=== PATIENT | female | born 1990 | race Caucasian/White ===

== ENCOUNTER 2017-02-23 11:42 | Emergency (ER) | payer SELFPAY ==
[~2017-02-23] VITALS: Ht 170.2 cm; Wt 102.8 kg
[~2017-02-23 11:42] MED LIST: AMOXICILLIN500 MG OR; AMOXICILLIN500 MG PO; AMOXIL400 MG/5 M OR; ATIVAN0.5 MG PO; AUGMENTIN875TAB PO; BLEPH-1010 % OU; CIPRO500 MG PO; CIPROFLOXACN500 MG PO; CORTISPORIN OP7.5 ML OP; FLAGYL500 MG PO; FLOVENT HFA44 MCG IN; LORTAB 10-325 M1 TAB PO; MACROBID100 MG OR; MIRENA IU; NAPROSYN500 MG PO; NO HOME MEDS; PATANOL0.1 % OP; PHENERGAN SUPP RE; PRENATA4 OR; PRILOSEC20 MG PO; PROAIR HFA IN; PROMETHAZINE25 M1 RE; SUMATRIPTAN25 MG PO; TOPAMAX50 M1 PO; TYLENOL500 MG OR; ULTRAM50 M1 OR; ULTRAM50 M1 PO; ULTRAM50 MG OR; WELLBUTRIN SR150 MG PO; ZITHROMAX250 MG PO; ZOFRAN ODT4 MG PO; ZPAK PO; [UNRECOGNIZED DRUG - OTHER]
[2017-02-23] MEDS ORDERED: BC HEADACH1 PO (11:52)
[2017-02-23] MEDS ORDERED: BL IBUPROFEN200 MG PO (11:52)
[2017-02-23 12:46] LABS: URINE BILIRUBIN - DIPSTICK NEGATIVE (NEGATIVE); URINE BLOOD DIPSTICK NEGATIVE (NEGATIVE); URINE CLARITY CLEAR; URINE COLOR YELLOW; URINE GLUCOSE - DIPSTICK NEGATIVE (NEGATIVE); URINE KETONE NEGATIVE (NEGATIVE); URINE LEUK ESTERASE NEGATIVE (NEGATIVE); URINE NITRITE - DIPSTICK NEGATIVE (Negative); URINE PH 6.5 (4.5-8.0); URINE PROTEIN - DIPSTICK NEGATIVE (NEG-TRACE); URINE UROBILINOGEN - DIPSTICK 0.2 E.U./dL (0.2)
[2017-02-23 12:50] LABS: HEMATOCRIT 41.6 % (37.0-47.0); HEMOGLOBIN 14.2 g/dl (12.0-16.0); IMMATURE GRANULOCYTES 0.5 % (0.0-1.0); MEAN CELL VOLUME 96.3 fL CALC (80.0-100.0); MEAN CORPUSCULAR HGB 32.9 pG CALC (26.0-32.0); MEAN CORPUSCULAR HGB CONC 34.1 g/L CALC (32.0-36.0); NEUT# 5.6 thou/uL (2.00-7.15); RED BLOOD COUNT 4.32 mill/uL (4.20-5.60); RED CELL DISTRI WIDTH 11.9 % (11.5-15.5)
[2017-02-23 13:45] LABS: ALBUMIN 4.4 g/dL (3.2-5.0); ALKALINE PHOSPHATASE 72 u/l (38-126); ANION GAP 17 (6-22 (CALC)); BILIRUBIN, TOTAL 0.4 mg/dL (0.0-1.4); BUN 11 mg/dL (7-17); BUN/CREATININE RATIO 18 (12-20 (CALC)); CALCIUM 9.1 mg/dL (8.4-10.2); CARBON DIOXIDE 22 mmol/l (22-30); CHLORIDE 106 mmol/l (95-108); CREATININE 0.6 mg/dL (0.5-1.0); GFR > 60 ML/MIN (>=60 (CALC)); GFR FOR AFR.AMER. > 60 ML/MIN (>=60 (CALC)); GLUCOSE 87 mg/dL (65-105); POTASSIUM 3.9 mmol/l (3.5-5.1); SGOT/AST 27 u/l (14-36); SGPT/ALT 34 u/l (9-52); SODIUM 141 mmol/l (137-146)
[2017-02-23] MEDS ORDERED: FIORICET PO (14:35)
[2017-02-23 14:55] VITALS: BP 126/75
== END 2017-02-23 14:51 | disposition home or self-care (01) | DRG 103 ==
LOC: ED 11:42
PROVIDERS: Emergency Medicine
DX: R51 Headache (principal); H53.8 Other visual disturbances; M54.2 Cervicalgia; R11.0 Nausea

== ENCOUNTER 2017-02-24 04:09 | Emergency (ER) | payer SELFPAY ==
[~2017-02-24] VITALS: Ht 170.2 cm; Wt 102.2 kg
[~2017-02-24 04:09] MED LIST changes: +BC HEADACH1 PO; +BL IBUPROFEN200 MG PO; +FIORICET PO
[2017-02-24 06:01] LABS: HEMOGLOBIN 14.8 g/dl (12.0-16.0); IMMATURE GRANULOCYTES 0.3 % (0.0-1.0); MEAN CELL VOLUME 97.3 fL CALC (80.0-100.0); MEAN CORPUSCULAR HGB 33.5 pG CALC (26.0-32.0); MEAN CORPUSCULAR HGB CONC 34.4 g/L CALC (32.0-36.0); NEUT# 6.84 thou/uL (2.00-7.15); RED BLOOD COUNT 4.42 mill/uL (4.20-5.60)
[2017-02-24 06:05] LABS: ALBUMIN 4.6 g/dL (3.2-5.0); ALKALINE PHOSPHATASE 67 u/l (38-126); ANION GAP 18 (6-22 (CALC)); BILIRUBIN, TOTAL 0.5 mg/dL (0.0-1.4); BUN 10 mg/dL (7-17); BUN/CREATININE RATIO 14 (12-20 (CALC)); CALCIUM 9.8 mg/dL (8.4-10.2); CARBON DIOXIDE 23 mmol/l (22-30); CHLORIDE 106 mmol/l (95-108); CREATININE 0.7 mg/dL (0.5-1.0); GFR > 60 ML/MIN (>=60 (CALC)); GFR FOR AFR.AMER. > 60 ML/MIN (>=60 (CALC)); GLUCOSE 87 mg/dL (65-105); POTASSIUM 4.2 mmol/l (3.5-5.1); SGOT/AST 20 u/l (14-36); SGPT/ALT 35 u/l (9-52); SODIUM 144 mmol/l (137-146); TOTAL PROTEIN 7.8 g/dL (6.3-8.2)
[2017-02-24 07:12] LABS: URINE BILIRUBIN - DIPSTICK NEGATIVE (NEGATIVE); URINE BLOOD DIPSTICK NEGATIVE (NEGATIVE); URINE CLARITY CLEAR; URINE COLOR YELLOW; URINE GLUCOSE - DIPSTICK NEGATIVE (NEGATIVE); URINE KETONE NEGATIVE (NEGATIVE); URINE LEUK ESTERASE NEGATIVE (NEGATIVE); URINE NITRITE - DIPSTICK NEGATIVE (Negative); URINE PROTEIN - DIPSTICK NEGATIVE (NEG-TRACE); URINE UROBILINOGEN - DIPSTICK 0.2 E.U./dL (0.2)
[2017-02-24 10:18] VITALS: BP 121/79
== END 2017-02-24 10:18 | disposition short-term general hospital (02) | DRG 103 ==
LOC: ED 04:09
PROVIDERS: Emergency Medicine
PROC: 009U3ZX Drainage of Spinal Canal, Percutaneous Approach, Diagnostic (ICD-10-PCS; principal; 2017-02-24)
DX: R51 Headache (principal)

== ENCOUNTER 2017-03-12 22:44 | Emergency (ER) | payer SELFPAY ==
[~2017-03-12] VITALS: Ht 170.2 cm; Wt 103.2 kg
[2017-03-13] MEDS ORDERED: ULTRAM50 M1 PO (01:50)
[2017-03-13 02:24] VITALS: BP 142/94
[2017-03-14] MEDS ORDERED: AMLODIPINE BESY10 MG PO (18:01)
== END 2017-03-13 02:21 | disposition home or self-care (01) | DRG 103 ==
LOC: ED 22:44
DX: R51 Headache (principal); I10 Essential (primary) hypertension; F32.9 Major depressive disorder, single episode, unspecified

== ENCOUNTER 2017-03-14 14:38 | Emergency (ER) | payer SELFPAY ==
[~2017-03-14] VITALS: Ht 170.2 cm; Wt 100.0 kg
[2017-03-14] MEDS ORDERED: AMLODIPINE BESY10 MG PO (18:01)
[2017-03-14 18:10] VITALS: BP 146/84
== END 2017-03-14 18:10 | disposition home or self-care (01) | DRG 103 ==
LOC: ED 14:38
DX: G44.009 Cluster headache syndrome, unspecified, not intractable (principal); I10 Essential (primary) hypertension; F32.9 Major depressive disorder, single episode, unspecified

== ENCOUNTER 2017-07-13 20:48 | Emergency (ER) | payer SELFPAY ==
[~2017-07-13] VITALS: Ht 170.2 cm; Wt 103.8 kg
[~2017-07-13 20:48] MED LIST changes: +AMLODIPINE BESY10 MG PO
[2017-07-13] MEDS ORDERED: ULTRAM50 M1 PO (21:27)
[2017-07-13] MEDS ORDERED: KEFLEX500 M1 PO (21:27)
[2017-07-13 21:50] VITALS: BP 139/81
== END 2017-07-13 21:50 | disposition home or self-care (01) | DRG 607 ==
LOC: ED 20:48
DX: S70.362A Insect bite (nonvenomous), left thigh, initial encounter (principal); L08.9 Local infection of the skin and subcutaneous tissue, unspecified; W57.XXXA Bitten or stung by nonvenomous insect and other nonvenomous arthropods, initial encounter

== ENCOUNTER 2017-09-15 23:37 | Emergency (ER) | payer SELFPAY ==
[~2017-09-15] VITALS: Ht 170.2 cm; Wt 107.0 kg
[~2017-09-15 23:37] MED LIST changes: +KEFLEX500 M1 PO
[2017-09-16 00:23] LABS: INFLUENZA A NONE DETECTED (NONE DETECT); INFLUENZA B NONE DETECTED (NONE DETECT)
[2017-09-16] MEDS ORDERED: AMOXICILLIN500 MG PO (00:40)
[2017-09-16] MEDS ORDERED: NAPROSYN500 MG PO (00:40)
[2017-09-16 01:00] VITALS: BP 152/102
== END 2017-09-16 01:00 | disposition home or self-care (01) | DRG 153 ==
LOC: ED 23:37
PROVIDERS: Emergency Medicine
DX: J02.9 Acute pharyngitis, unspecified (principal); I88.9 Nonspecific lymphadenitis, unspecified; F17.210 Nicotine dependence, cigarettes, uncomplicated

== ENCOUNTER 2017-10-12 21:49 | Emergency (ER) | payer SELFPAY ==
[~2017-10-12] VITALS: Ht 170.2 cm; Wt 106.8 kg
[2017-10-12] MEDS ORDERED: TYLENOL # 31 TA1 PO (23:06)
[2017-10-12] MEDS ORDERED: AUGMENTIN875TAB PO (23:06)
[2017-10-12 23:25] VITALS: BP 169/102
== END 2017-10-12 23:25 | disposition home or self-care (01) | DRG 605 ==
LOC: ED 21:49
PROC: 0HQ1XZZ Repair Face Skin, External Approach (ICD-10-PCS; principal; 2017-10-12)
DX: S01.85XA Open bite of other part of head, initial encounter (principal); S00.87XA Other superficial bite of other part of head, initial encounter; S01.551A Open bite of lip, initial encounter; S10.97XA Other superficial bite of unspecified part of neck, initial encounter; F17.210 Nicotine dependence, cigarettes, uncomplicated; W54.0XXA Bitten by dog, initial encounter; Y92.009 Unspecified place in unspecified non-institutional (private) residence as the place of occurrence of the external cause

== ENCOUNTER 2017-10-14 19:46 | Emergency (ER) | payer SELFPAY ==
[~2017-10-14] VITALS: Ht 170.2 cm; Wt 108.2 kg
[~2017-10-14 19:46] MED LIST changes: +TYLENOL # 31 TA1 PO
[2017-10-14 20:29] LABS: HEMATOCRIT 40.2 % (37.0-47.0); HEMOGLOBIN 13.7 g/dl (12.0-16.0); IMMATURE GRANULOCYTES 0.4 % (0.0-1.0); MEAN CELL VOLUME 95.9 fL CALC (80.0-100.0); MEAN CORPUSCULAR HGB 32.7 pG CALC (26.0-32.0); MEAN CORPUSCULAR HGB CONC 34.1 g/L CALC (32.0-36.0); NEUT# 7.69 thou/uL (2.00-7.15); RED BLOOD COUNT 4.19 mill/uL (4.20-5.60); RED CELL DISTRI WIDTH 12.4 % (11.5-15.5)
[2017-10-14 20:42] LABS: ANION GAP 12 (6-22 (CALC)); BUN 12 mg/dL (7-17); BUN/CREATININE RATIO 18 (12-20 (CALC)); CARBON DIOXIDE 21 mmol/l (22-30); CHLORIDE 109 mmol/l (95-108); CREATININE 0.7 mg/dL (0.5-1.0); GFR > 60 ML/MIN (>=60 (CALC)); GFR FOR AFR.AMER. > 60 ML/MIN (>=60 (CALC)); POTASSIUM 3.9 mmol/l (3.5-5.1); SODIUM 138 mmol/l (137-146)
[2017-10-14 23:05] VITALS: BP 168/97
== END 2017-10-14 23:05 | disposition home or self-care (01) | DRG 605 ==
LOC: ED 19:46
PROVIDERS: Family Medicine
PROC: 0H94XZZ Drainage of Neck Skin, External Approach (ICD-10-PCS; principal; 2017-10-14)
DX: S11.95XA Open bite of unspecified part of neck, initial encounter (principal); W54.0XXA Bitten by dog, initial encounter
CPT/HCPCS: Q9967

== ENCOUNTER 2017-10-16 11:10 | Emergency (ER) | payer SELFPAY ==
[~2017-10-16] VITALS: Ht 170.2 cm; Wt 107.0 kg
[2017-10-16 12:01] VITALS: BP 152/106
== END 2017-10-16 12:06 | disposition home or self-care (01) | DRG 949 ==
LOC: ED 11:10
DX: S01.85XD Open bite of other part of head, subsequent encounter (principal); L02.01 Cutaneous abscess of face; W54.0XXD Bitten by dog, subsequent encounter

== ENCOUNTER 2017-10-18 11:26 | Emergency (ER) | payer SELFPAY ==
[~2017-10-18] VITALS: Ht 170.2 cm; Wt 100.0 kg
[2017-10-18 12:00] VITALS: BP 150/99
== END 2017-10-18 12:10 | disposition home or self-care (01) | DRG 951 ==
LOC: ED 11:26
DX: Z48.01 Encounter for change or removal of surgical wound dressing (principal); F17.210 Nicotine dependence, cigarettes, uncomplicated

== ENCOUNTER 2017-10-24 00:06 | Emergency (ER) | payer SELFPAY ==
[~2017-10-24] VITALS: Ht 170.2 cm; Wt 106.8 kg
[2017-10-24 01:06] LABS: HEMOGLOBIN 13.8 g/dl (12.0-16.0); IMMATURE GRANULOCYTES 0.4 % (0.0-1.0); MEAN CELL VOLUME 95.9 fL CALC (80.0-100.0); MEAN CORPUSCULAR HGB 33.1 pG CALC (26.0-32.0); MEAN CORPUSCULAR HGB CONC 34.5 g/L CALC (32.0-36.0); NEUT# 7.21 thou/uL (2.00-7.15); RED BLOOD COUNT 4.17 mill/uL (4.20-5.60); RED CELL DISTRI WIDTH 12.2 % (11.5-15.5)
[2017-10-24 01:25] LABS: ALKALINE PHOSPHATASE 77 u/l (38-126); ANION GAP 10 (6-22 (CALC)); BILIRUBIN, TOTAL 0.3 mg/dL (0.0-1.4); BUN 11 mg/dL (7-17); BUN/CREATININE RATIO 19 (12-20 (CALC)); CARBON DIOXIDE 25 mmol/l (22-30); CHLORIDE 106 mmol/l (95-108); CREATININE 0.6 mg/dL (0.5-1.0); GFR > 60 ML/MIN (>=60 (CALC)); GFR FOR AFR.AMER. > 60 ML/MIN (>=60 (CALC)); POTASSIUM 3.6 mmol/l (3.5-5.1); SGOT/AST 26 u/l (14-36); SGPT/ALT 46 u/l (9-52); SODIUM 137 mmol/l (137-146); TOTAL PROTEIN 7.5 g/dL (6.3-8.2)
[2017-10-24] MEDS ORDERED: BACTRIM DS1 TAB PO (01:56)
[2017-10-24 02:40] VITALS: BP 162/88
== END 2017-10-24 02:43 | disposition home or self-care (01) | DRG 603 ==
LOC: ED 00:06
PROVIDERS: Emergency Medicine
DX: L03.811 Cellulitis of head [any part, except face] (principal); S01.85XD Open bite of other part of head, subsequent encounter; W54.0XXD Bitten by dog, subsequent encounter
CPT/HCPCS: Q9967

== ENCOUNTER 2018-03-14 13:32 | Emergency (ER) | payer SELFPAY ==
[~2018-03-14] VITALS: Ht 170.2 cm; Wt 245.0 kg
[~2018-03-14 13:32] MED LIST changes: +BACTRIM DS1 TAB PO
[2018-03-14 14:13] LABS: HEMATOCRIT 43.3 % (37.0-47.0); HEMOGLOBIN 14.8 g/dl (12.0-16.0); IMMATURE GRANULOCYTES 0.7 % (0.0-5.0); MEAN CELL VOLUME 94.7 fL CALC (80.0-100.0); MEAN CORPUSCULAR HGB 32.4 pG CALC (26.0-32.0); MEAN CORPUSCULAR HGB CONC 34.2 g/L CALC (32.0-36.0); NEUT# 11.68 thou/uL (2.00-7.15); RED BLOOD COUNT 4.57 mill/uL (4.20-5.60); RED CELL DISTRI WIDTH 12.6 % (11.5-15.5)
[2018-03-14 14:19] LABS: ALBUMIN 4.6 g/dL (3.2-5.0); ALKALINE PHOSPHATASE 83 u/l (38-126); ANION GAP 19 (6-22 (CALC)); BILIRUBIN, TOTAL 0.5 mg/dL (0.0-1.4); BUN 9 mg/dL (7-17); BUN/CREATININE RATIO 14 (12-20 (CALC)); CARBON DIOXIDE 20 mmol/l (22-30); CHLORIDE 103 mmol/l (95-108); CREATININE 0.6 mg/dL (0.5-1.0); GFR > 60 ML/MIN (>=60 (CALC)); GFR FOR AFR.AMER. > 60 ML/MIN (>=60 (CALC)); POTASSIUM 4.2 mmol/l (3.5-5.1); SGOT/AST 26 u/l (14-36); SODIUM 138 mmol/l (137-146); TOTAL PROTEIN 8.3 g/dL (6.3-8.2)
[2018-03-14 14:23] LABS: INFLUENZA A NONE DETECTED (NONE DETECT); INFLUENZA B NONE DETECTED (NONE DETECT)
[2018-03-14] MEDS ORDERED: CEPHALEXIN500 M1 PO (14:53)
[2018-03-14] MEDS ORDERED: NAPROSYN500 MG PO (14:53)
[2018-03-14] MEDS ORDERED: ROBITUSSIN AC10 ML PO (14:53)
[2018-03-14 14:55] VITALS: BP 128/76
== END 2018-03-14 15:07 | disposition home or self-care (01) | DRG 153 ==
LOC: ED 13:32
PROVIDERS: Emergency Medicine
DX: J06.9 Acute upper respiratory infection, unspecified (principal); F41.9 Anxiety disorder, unspecified; F17.210 Nicotine dependence, cigarettes, uncomplicated

== ENCOUNTER 2018-04-30 19:40 | Emergency (ER) | payer SELFPAY ==
[~2018-04-30] VITALS: Ht 170.2 cm; Wt 105.2 kg
[~2018-04-30 19:40] MED LIST changes: +CEPHALEXIN500 M1 PO; +ROBITUSSIN AC10 ML PO
[2018-04-30 21:59] VITALS: BP 156/92
[2018-04-30] MEDS ORDERED: AMOXICILLIN/PO500 MG PO (21:59)
[2018-04-30] MEDS ORDERED: ROBITUSSIN AC10 ML PO (22:00)
== END 2018-04-30 22:08 | disposition home or self-care (01) | DRG 153 ==
LOC: ED 19:40
DX: J02.9 Acute pharyngitis, unspecified (principal); I88.9 Nonspecific lymphadenitis, unspecified; F41.9 Anxiety disorder, unspecified; F17.200 Nicotine dependence, unspecified, uncomplicated

== ENCOUNTER 2018-09-07 21:38 | Emergency (ER) | payer SELFPAY ==
[~2018-09-07] VITALS: Ht 170.2 cm; Wt 110.0 kg
[~2018-09-07 21:38] MED LIST changes: +AMOXICILLIN/PO500 MG PO
[2018-09-07 22:29] LABS: IMMATURE GRANULOCYTES 0.7 % (0.0-5.0); MEAN CELL VOLUME 93.8 fL CALC (80.0-100.0); MEAN CORPUSCULAR HGB 31.4 pG CALC (26.0-32.0); MEAN CORPUSCULAR HGB CONC 33.4 g/L CALC (32.0-36.0); NEUT# 7.82 thou/uL (2.00-7.15); RED BLOOD COUNT 4.05 mill/uL (4.20-5.60); RED CELL DISTRI WIDTH 13.2 % (11.5-15.5)
[2018-09-07 22:35] LABS: HEMOGLOBIN 12.7 g/dl (12.0-16.0)
[2018-09-07 22:45] LABS: ALBUMIN 4.1 g/dL (3.2-5.0); ALKALINE PHOSPHATASE 77 u/l (38-126); BUN 8 mg/dL (7-17); BUN/CREATININE RATIO 13 (12-20 (CALC)); CARBON DIOXIDE 22 mmol/l (22-30); CHLORIDE 107 mmol/l (95-108); CREATININE 0.6 mg/dL (0.5-1.0); GFR > 60 ML/MIN (>=60 (CALC)); GFR FOR AFR.AMER. > 60 ML/MIN (>=60 (CALC)); SGOT/AST 25 u/l (14-36); SODIUM 138 mmol/l (137-146); TOTAL PROTEIN 7.3 g/dL (6.3-8.2)
[2018-09-07 22:47] LABS: ANION GAP 12 (6-22 (CALC)); BILIRUBIN, TOTAL 0.2 mg/dL (0.0-1.4); POTASSIUM 3.3 mmol/l (3.5-5.1)
[2018-09-07 23:08] LABS: URINE BILIRUBIN - DIPSTICK NEGATIVE (NEGATIVE); URINE BLOOD DIPSTICK NEGATIVE (NEGATIVE); URINE COLOR YELLOW; URINE GLUCOSE - DIPSTICK NEGATIVE (NEGATIVE); URINE KETONE NEGATIVE (NEGATIVE); URINE LEUK ESTERASE NEGATIVE (NEGATIVE); URINE NITRITE - DIPSTICK NEGATIVE (Negative); URINE PROTEIN - DIPSTICK NEGATIVE (NEG-TRACE); URINE SPECIFIC GRAVITY 1.015; URINE UROBILINOGEN - DIPSTICK 0.2 E.U./dL (0.2)
[2018-09-07 23:11] LABS: COCAINE NEGATIVE (NEGATIVE); METHADONE NEGATIVE (NEGATIVE); TETRAHYDROCANNABIONOL NEGATIVE (NEGATIVE)
[2018-09-07 23:12] LABS: BARBITURATES NEGATIVE (NEGATIVE); OXCYCODONE POSITIVE (NEGATIVE); TRICYLIC ANTIDEPRESSANTS NEGATIVE (NEGATIVE)
[2018-09-08 00:33] VITALS: BP 134/74
== END 2018-09-08 00:33 | disposition home or self-care (01) | DRG 833 ==
LOC: ED 21:38
PROVIDERS: Emergency Medicine
DX: O26.899 Other specified pregnancy related conditions, unspecified trimester (principal); R51 Headache; O99.330 Smoking (tobacco) complicating pregnancy, unspecified trimester; F17.200 Nicotine dependence, unspecified, uncomplicated; Z3A.00 Weeks of gestation of pregnancy not specified

== ENCOUNTER 2018-09-25 18:43 | Emergency (ER) | payer MEDICAID ==
[~2018-09-25] VITALS: Ht 170.2 cm; Wt 111.0 kg
[2018-09-25 19:28] LABS: HEMATOCRIT 38.3 % (37.0-47.0); IMMATURE GRANULOCYTES 0.5 % (0.0-5.0); MEAN CELL VOLUME 94.8 fL CALC (80.0-100.0); MEAN CORPUSCULAR HGB 32.2 pG CALC (26.0-32.0); MEAN CORPUSCULAR HGB CONC 33.9 g/L CALC (32.0-36.0); NEUT# 7.47 thou/uL (2.00-7.15); RED BLOOD COUNT 4.04 mill/uL (4.20-5.60)
[2018-09-25] MEDS ORDERED: PRE-NATAL PO (19:31)
[2018-09-25 19:48] LABS: ALBUMIN 4.2 g/dL (3.2-5.0); ALKALINE PHOSPHATASE 73 u/l (38-126); ANION GAP 16 (6-22 (CALC)); BILIRUBIN, TOTAL 0.2 mg/dL (0.0-1.4); BUN 10 mg/dL (7-17); BUN/CREATININE RATIO 17 (12-20 (CALC)); CARBON DIOXIDE 20 mmol/l (22-30); CHLORIDE 107 mmol/l (95-108); CREATININE 0.6 mg/dL (0.5-1.0); GFR > 60 ML/MIN (>=60 (CALC)); GFR FOR AFR.AMER. > 60 ML/MIN (>=60 (CALC)); POTASSIUM 3.9 mmol/l (3.5-5.1); SGOT/AST 20 u/l (14-36); SODIUM 139 mmol/l (137-146); TOTAL PROTEIN 7.4 g/dL (6.3-8.2)
[2018-09-25 20:05] LABS: BETA-HCG, QUANT(RESULT NUMBER) 2398 mIU/mL
[2018-09-25 20:11] LABS: URINE BILIRUBIN - DIPSTICK NEGATIVE (NEGATIVE); URINE BLOOD DIPSTICK NEGATIVE (NEGATIVE); URINE COLOR YELLOW; URINE GLUCOSE - DIPSTICK NEGATIVE (NEGATIVE); URINE KETONE NEGATIVE (NEGATIVE); URINE LEUK ESTERASE NEGATIVE (NEGATIVE); URINE NITRITE - DIPSTICK NEGATIVE (Negative); URINE PROTEIN - DIPSTICK NEGATIVE (NEG-TRACE); URINE SPECIFIC GRAVITY 1.025
[2018-09-25 21:15] VITALS: BP 155/90
== END 2018-09-25 21:15 | disposition home or self-care (01) ==
LOC: ED 18:43
PROVIDERS: Family Medicine
DX: O46.91 Antepartum hemorrhage, unspecified, first trimester (principal); O99.331 Smoking (tobacco) complicating pregnancy, first trimester; F17.210 Nicotine dependence, cigarettes, uncomplicated; Z3A.08 8 weeks gestation of pregnancy

== ENCOUNTER 2018-12-09 05:10 | Emergency (ER) | payer MEDICAID ==
[~2018-12-09] VITALS: Ht 170.2 cm; Wt 109.1 kg
[~2018-12-09 05:10] MED LIST changes: +PRE-NATAL PO
[2018-12-09 05:57] LABS: HEMOGLOBIN 13.6 g/dl (12.0-16.0); IMMATURE GRANULOCYTES 0.5 % (0.0-5.0); MEAN CELL VOLUME 92.4 fL CALC (80.0-100.0); MEAN CORPUSCULAR HGB 31.4 pG CALC (26.0-32.0); NEUT# 8.44 thou/uL (2.00-7.15); RED BLOOD COUNT 4.33 mill/uL (4.20-5.60); RED CELL DISTRI WIDTH 12.3 % (11.5-15.5)
[2018-12-09 05:59] LABS: URINE BILIRUBIN - DIPSTICK NEGATIVE (NEGATIVE); URINE BLOOD DIPSTICK NEGATIVE (NEGATIVE); URINE COLOR YELLOW; URINE GLUCOSE - DIPSTICK NEGATIVE (NEGATIVE); URINE KETONE NEGATIVE (NEGATIVE); URINE LEUK ESTERASE NEGATIVE (NEGATIVE); URINE NITRITE - DIPSTICK NEGATIVE (Negative); URINE PH 6.5 (4.5-8.0); URINE PROTEIN - DIPSTICK TRACE mg/dL (NEG-TRACE); URINE SPECIFIC GRAVITY 1.025; URINE UROBILINOGEN - DIPSTICK 0.2 E.U./dL (0.2)
[2018-12-09 06:03] LABS: BARBITURATES NEGATIVE (NEGATIVE); COCAINE NEGATIVE (NEGATIVE); METHADONE NEGATIVE (NEGATIVE); OXCYCODONE NEGATIVE (NEGATIVE); TETRAHYDROCANNABIONOL NEGATIVE (NEGATIVE); TRICYLIC ANTIDEPRESSANTS NEGATIVE (NEGATIVE)
[2018-12-09 06:07] LABS: ALBUMIN 4.6 g/dL (3.2-5.0); ALKALINE PHOSPHATASE 84 u/l (38-126); ANION GAP 15 (6-22 (CALC)); BILIRUBIN, TOTAL 0.4 mg/dL (0.0-1.4); BUN 12 mg/dL (7-17); BUN/CREATININE RATIO 22 (12-20 (CALC)); CARBON DIOXIDE 20 mmol/l (22-30); CHLORIDE 108 mmol/l (95-108); CREATININE 0.5 mg/dL (0.5-1.0); GFR > 60 ML/MIN (>=60 (CALC)); GFR FOR AFR.AMER. > 60 ML/MIN (>=60 (CALC)); POTASSIUM 3.9 mmol/l (3.5-5.1); SGOT/AST 23 u/l (14-36); SODIUM 140 mmol/l (137-146)
[2018-12-09 06:45] VITALS: BP 156/92
[2018-12-09] MEDS ORDERED: LISINOP/HCTZ1 TA1 PO (06:47)
== END 2018-12-09 07:03 | disposition home or self-care (01) ==
LOC: ED 05:10
PROVIDERS: Family Medicine
DX: I10 Essential (primary) hypertension (principal); F17.210 Nicotine dependence, cigarettes, uncomplicated
CPT/HCPCS: J0131

== ENCOUNTER 2019-04-18 18:22 | Emergency (ER) | payer MEDICAID ==
[~2019-04-18 18:22] MED LIST changes: +LISINOP/HCTZ1 TA1 PO
[2019-04-18 18:38] VITALS: BP 156/104
== END 2019-04-18 21:40 | disposition left against medical advice (07) | DRG 951 ==
LOC: ED 18:22 → LWOBS 21:40
DX: Z53.21 Procedure and treatment not carried out due to patient leaving prior to being seen by health care provider (principal)

== ENCOUNTER 2019-08-20 | Emergency (ER) | payer SELFPAY ==
--- NOTE | 2019-08-20 06:46 | NUR ---
pt to room per w/c
--- NOTE | 2019-08-20 07:00 | NUR ---
PT STATES SHE WAS SITTING IN A CHAIR AT WORK, AND STARTED TO FEEL FUNNY AND PASSED OUT, WAKING BACK UP AFTER A FEW MIN. DENIES FALLING. FELT A LITTLE DIZZY, IS ABLE TO MAEW AT THIS TIME, ALERT/ORIENTED X3.
--- NOTE | 2019-08-20 07:15 | NUR ---
PT RESTING QUIETLY ON STRETCHER, NO COMPLAINTS AT THIS TIME. VISITOR AT BEDSIDE. VSS.
[2019-08-20 07:16] LABS: HEMATOCRIT 41.4 % (37.0-47.0); HEMOGLOBIN 13.7 g/dl (12.0-16.0); IMMATURE GRANULOCYTES 0.6 % (0.0-5.0); MEAN CELL VOLUME 93.5 fL CALC (80.0-100.0); MEAN CORPUSCULAR HGB 30.9 pG CALC (26.0-32.0); MEAN CORPUSCULAR HGB CONC 33.1 g/dL CAL (32.0-36.0); NEUT# 5.56 thou/uL (2.00-7.15); RED BLOOD COUNT 4.43 mill/uL (4.20-5.60); RED CELL DISTRI WIDTH 13.4 % (11.5-15.5)
[2019-08-20 07:25] LABS: URINE BILIRUBIN - DIPSTICK NEGATIVE (NEGATIVE); URINE BLOOD DIPSTICK NEGATIVE (NEGATIVE); URINE COLOR YELLOW; URINE GLUCOSE - DIPSTICK NEGATIVE (NEGATIVE); URINE KETONE NEGATIVE (NEGATIVE); URINE LEUK ESTERASE NEGATIVE (NEGATIVE); URINE NITRITE - DIPSTICK NEGATIVE (Negative); URINE PH 7.5 (4.5-8.0); URINE PROTEIN - DIPSTICK NEGATIVE (NEG-TRACE); URINE SPECIFIC GRAVITY 1.025; URINE UROBILINOGEN - DIPSTICK 0.2 E.U./dL (0.2)
[2019-08-20 07:29] LABS: BARBITURATES NEGATIVE (NEGATIVE); COCAINE NEGATIVE (NEGATIVE); METHADONE NEGATIVE (NEGATIVE); TETRAHYDROCANNABIONOL NEGATIVE (NEGATIVE); TRICYLIC ANTIDEPRESSANTS NEGATIVE (NEGATIVE)
[2019-08-20 07:30] LABS: OXCYCODONE NEGATIVE (NEGATIVE)
[2019-08-20 07:33] LABS: ALBUMIN 4.4 g/dL (3.2-5.0); ALKALINE PHOSPHATASE 80 u/l (38-126); ANION GAP 15 (6-22 (CALC)); BILIRUBIN, TOTAL 0.4 mg/dL (0.0-1.4); BUN 13 mg/dL (7-17); BUN/CREATININE RATIO 20 (12-20 (CALC)); CARBON DIOXIDE 22 mmol/l (22-30); CHLORIDE 105 mmol/l (95-108); CREATININE 0.6 mg/dL (0.5-1.0); GFR > 60 ML/MIN (>=60 (CALC)); GFR FOR AFR.AMER. > 60 ML/MIN (>=60 (CALC)); POTASSIUM 4.5 mmol/l (3.5-5.1); SGOT/AST 24 u/l (14-36); SODIUM 138 mmol/l (137-146); TOTAL PROTEIN 7.7 g/dL (6.3-8.2)
[2019-08-20 07:46] LABS: MYOGLOBIN 39 ng/mL (0 - 62)
--- NOTE | 2019-08-20 08:36 | NUR ---
ADVISED OF CONTINUED WAIT TIME FOR CAT SCAN RESULTS. NO COMPLAINT OF PAIN OR NUMBNESS AT THIS TIME
--- NOTE | 2019-08-20 08:45 | NUR ---
PTS BLOOD PRESSURE WENT BACK UP, STATES HAS HEADACHE, DSR. NOTIFIED AND ORDERS RECEIVED FOR B/P MEDS.
--- NOTE | 2019-08-20 08:59 | NUR ---
WAITING FOR BED ASSIGNMENT BEFORE TAKING PT TO ROOM
--- NOTE | 2019-08-20 09:28 | NUR ---
AFTER CALLING REPORT TO FLOOR, PT DECIDED SHE WANTED TO GO AMA, NOTIFIED, DR. ALEJANDRE AND DR. JENSEN THAT PT WAS AMA. CASLLED THE FLOOR AND OBTAINED PAPERWORK FOR DISCHARGE FROM ADMITTED PT TO GIVE TO REGISTRATION. PT AMBLATORY FROM ER WITH STEADY GAIT
--- NOTE | 2019-08-20 09:42 | NUR ---
Patient decides to leave AMA. Multiple attempts made to ecourage patient to remain here for continued treatment. Explained to patient all risks of leaving against medical advice including . Pt verbalized understanding of all risks. Pt also encouraged to return to [facility] at any time, especially if symptoms continue or become worse. Pt verbalized understanding. PT STATES HAS KIDS AT HOME AND JUST COULDNT STAY
== END 2019-08-20 09:44 | disposition left against medical advice (07) | DRG 313 ==
PROVIDERS: Emergency Medicine
DX: R07.9 Chest pain, unspecified (principal); R55 Syncope and collapse; I10 Essential (primary) hypertension; F17.200 Nicotine dependence, unspecified, uncomplicated; T46.5X6A Underdosing of other antihypertensive drugs, initial encounter; Z91.128 Patient's intentional underdosing of medication regimen for other reason; Z91.19 Patient's noncompliance with other medical treatment and regimen

== ENCOUNTER 2020-04-12 17:03 | Emergency (ER) | payer SELFPAY ==
[~2020-04-12] VITALS: Ht 170.2 cm; Wt 90.0 kg
[2020-04-12] MEDS ORDERED: KEFLEX500 M1 PO (18:08)
[2020-04-12 18:19] VITALS: BP 142/82
== END 2020-04-12 18:24 | disposition home or self-care (01) | DRG 833 ==
LOC: ED 17:03
DX: O91.211 Nonpurulent mastitis associated with pregnancy, first trimester (principal); O99.331 Smoking (tobacco) complicating pregnancy, first trimester; F17.200 Nicotine dependence, unspecified, uncomplicated; Z3A.01 Less than 8 weeks gestation of pregnancy

== ENCOUNTER 2020-06-10 07:41 | Emergency (ER) | payer MEDICAID ==
[~2020-06-10] VITALS: Ht 170.2 cm; Wt 105.0 kg
[2020-06-10 07:46] VITALS: BP 152/93
[2020-06-10] MEDS ORDERED: KEFLEX500 MG PO (07:54)
[2020-06-10 08:58] LABS: HEMATOCRIT 33.3 % (37.0-47.0); HEMOGLOBIN 11.4 g/dl (12.0-16.0); IMMATURE GRANULOCYTES 0.6 % (0.0-5.0); MEAN CELL VOLUME 92.5 fL CALC (80.0-100.0); MEAN CORPUSCULAR HGB 31.7 pG CALC (26.0-32.0); MEAN CORPUSCULAR HGB CONC 34.2 g/dL CAL (32.0-36.0); NEUT# 9.98 thou/uL (2.00-7.15); RED BLOOD COUNT 3.6 mill/uL (4.20-5.60); RED CELL DISTRI WIDTH 13.2 % (11.5-15.5)
[2020-06-10 08:59] LABS: ALBUMIN 3.5 g/dL (3.2-5.0); ALKALINE PHOSPHATASE 59 u/l (38-126); ANION GAP 13 (6-22 (CALC)); BILIRUBIN, TOTAL 0.5 mg/dL (0.0-1.4); BUN 3 mg/dL (7-17); BUN/CREATININE RATIO 8 (12-20 (CALC)); CARBON DIOXIDE 17 mmol/l (22-30); CHLORIDE 106 mmol/l (95-108); CREATININE 0.4 mg/dL (0.5-1.0); GFR > 60 ML/MIN (>=60 (CALC)); GFR FOR AFR.AMER. > 60 ML/MIN (>=60 (CALC)); POTASSIUM 3.1 mmol/l (3.5-5.1); SGOT/AST 17 u/l (14-36); SODIUM 133 mmol/l (137-146); TOTAL PROTEIN 6.6 g/dL (6.3-8.2)
== END 2020-06-10 11:24 | disposition short-term general hospital (02) ==
LOC: ED 07:41
PROVIDERS: Emergency Medicine
DX: O91.112 Abscess of breast associated with pregnancy, second trimester (principal); O92.29 Other disorders of breast associated with pregnancy and the puerperium; O99.332 Smoking (tobacco) complicating pregnancy, second trimester; F17.210 Nicotine dependence, cigarettes, uncomplicated; Z3A.15 15 weeks gestation of pregnancy

== ENCOUNTER 2021-10-03 20:17 | Observation (INO) | payer MEDICAID ==
[~2021-10-03] VITALS: Ht 170.2 cm; Wt 106.8 kg
[2021-10-03] VITALS (9 sets, daily range): BP systolic 165–208; BP diastolic 111–128
[~2021-10-03 20:17] MED LIST changes: +KEFLEX500 MG PO
[2021-10-03 21:47] LABS: HEMOGLOBIN 13.2 g/dl (12.0-16.0); IMMATURE GRANULOCYTES 0.2 % (0.0-5.0); MEAN CELL VOLUME 91.6 fL CALC (80.0-100.0); MEAN CORPUSCULAR HGB 29.3 pG CALC (26.0-32.0); NEUT# 10.28 thou/uL (2.00-7.15); RED BLOOD COUNT 4.51 mill/uL (4.20-5.60); RED CELL DISTRI WIDTH 14.2 % (11.5-15.5)
[2021-10-03 21:48] LABS: HEMATOCRIT 41.3 % (37.0-47.0)
[2021-10-03 22:04] LABS: ALKALINE PHOSPHATASE 80 u/l (38-126); BILIRUBIN, TOTAL 0.4 mg/dL (0.0-1.4); BUN 10 mg/dL (7-17); BUN/CREATININE RATIO 16 (12-20 (CALC)); CHLORIDE 106 mmol/l (95-108); CREATININE 0.7 mg/dL (0.5-1.0); GFR FOR AFR.AMER. > 60 ML/MIN (>=60 (CALC)); GFR OTHER RACES > 60 ML/MIN (>=60 (CALC)); POTASSIUM 3.6 mmol/l (3.5-5.1); SGOT/AST 22 u/l (14-36); SODIUM 138 mmol/l (137-146)
[2021-10-03 22:06] LABS: ALBUMIN 4.3 g/dL (3.2-5.0); ANION GAP 13 (6-22 (CALC)); CARBON DIOXIDE 23 mmol/l (22-30); TOTAL PROTEIN 8.1 g/dL (6.3-8.2)
[2021-10-04] VITALS (13 sets, daily range): BP systolic 138–175; BP diastolic 90–114
[2021-10-04] MEDS ORDERED: PERCOCET 5/321 COMBO PO (12:53)
[2021-10-04] MEDS ORDERED: BACTRIM DS1 TAB PO (12:58)
== END 2021-10-04 14:11 | disposition home or self-care (01) | DRG 585 ==
LOC: ED 20:17 → ED-I 23:00 → ED 23:26 → ED-I 23:27
PROVIDERS: Emergency Medicine; ADMIT Surgery; ATTEND Surgery
PROC: 0H9T0ZZ Drainage of Right Breast, Open Approach (ICD-10-PCS; principal; 2021-10-04)
DX: N61.1 Abscess of the breast and nipple (principal); I10 Essential (primary) hypertension; F41.9 Anxiety disorder, unspecified; Z80.3 Family history of malignant neoplasm of breast; Z87.891 Personal history of nicotine dependence; Z20.822 Contact with and (suspected) exposure to COVID-19
CPT/HCPCS: J0131; Q9967

== ENCOUNTER 2021-10-28 10:14 | Day surgery (SDC) | payer MEDICAID ==
[~2021-10-28] VITALS: Ht 170.2 cm; Wt 104.3 kg
[~2021-10-28 10:14] MED LIST changes: +PERCOCET 5/321 COMBO PO
[2021-10-28] MEDS ORDERED: PERCOCET 5/321 COMBO PO ×2 (12:27→12:31)
[2021-10-28] MEDS ORDERED: BACTRIM DS1 TAB PO (12:28)
[2021-10-28 13:56] VITALS: BP 153/100
== END 2021-10-28 13:55 | disposition home or self-care (01) ==
LOC: ORM 10:14
PROVIDERS: ATTEND Surgery
DX: N61.1 Abscess of the breast and nipple (principal)
CPT/HCPCS: C9290; J0131; J1100

== ENCOUNTER 2022-02-02 15:41 | Emergency (ER) | payer MEDICAID ==
[~2022-02-02] VITALS: Ht 170.2 cm; Wt 104.3 kg
[2022-02-02 15:57] VITALS: BP 151/90
[2022-02-02 16:01] VITALS: BP 156/97
[2022-02-02 16:01] LABS: IMMATURE GRANULOCYTES 0.3 % (0.0-5.0); MEAN CELL VOLUME 90.3 fL CALC (80.0-100.0); MEAN CORPUSCULAR HGB 29.4 pG CALC (26.0-32.0); MEAN CORPUSCULAR HGB CONC 32.6 g/dL CAL (32.0-36.0); NEUT# 10.54 thou/uL (2.00-7.15); RED BLOOD COUNT 4.76 mill/uL (4.20-5.60); RED CELL DISTRI WIDTH 14.1 % (11.5-15.5)
[2022-02-02 16:15] VITALS: BP 172/107
[2022-02-02 16:21] LABS: ALBUMIN 4.7 g/dL (3.2-5.0); ALKALINE PHOSPHATASE 107 u/l (38-126); BUN 13 mg/dL (7-17); BUN/CREATININE RATIO 16 (12-20 (CALC)); CHLORIDE 103 mmol/l (95-108); CREATININE 0.8 mg/dL (0.5-1.0); GFR FOR AFR.AMER. > 60 ML/MIN (>=60 (CALC)); GFR OTHER RACES > 60 ML/MIN (>=60 (CALC)); POTASSIUM 4.1 mmol/l (3.5-5.1); SGOT/AST 33 u/l (14-36); SODIUM 137 mmol/l (137-146); TOTAL PROTEIN 8.5 g/dL (6.3-8.2)
[2022-02-02 16:24] LABS: ANION GAP 20 (6-22 (CALC)); BILIRUBIN, TOTAL 0.2 mg/dL (0.0-1.4); CARBON DIOXIDE 18 mmol/l (22-30)
[2022-02-02 18:05] VITALS: BP 149/92
[2022-02-02 18:25] LABS: URINE BILIRUBIN - DIPSTICK NEGATIVE (NEGATIVE); URINE BLOOD DIPSTICK MODERATE (NEGATIVE); URINE COLOR YELLOW; URINE GLUCOSE - DIPSTICK NEGATIVE (NEGATIVE); URINE KETONE 15 mg/dL (NEGATIVE); URINE LEUK ESTERASE TRACE (NEGATIVE); URINE PH 6.5 (4.5-8.0); URINE PROTEIN - DIPSTICK NEGATIVE (NEG-TRACE); URINE SPECIFIC GRAVITY 1.015; URINE UROBILINOGEN - DIPSTICK 0.2 E.U./dL (0.2)
[2022-02-02 18:30] VITALS: BP 143/93
[2022-02-02 18:34] LABS: URINE NITRITE - DIPSTICK NEGATIVE (Negative)
[2022-02-02 18:38] LABS: URINE SQUAMOUS EPITHELIAL CELL FEW EPI/hpf (0-FEW)
[2022-02-02] MEDS ORDERED: TAMSULOSIN0.4 MG PO (19:04)
[2022-02-02] MEDS ORDERED: TORADOL PO (19:04)
[2022-02-02] MEDS ORDERED: PERCOCET 10/31 COMBO PO (19:04)
[2022-02-02] MEDS ORDERED: KEFLEX500 MG PO (19:04)
[2022-02-02 19:22] VITALS: BP 143/93
== END 2022-02-02 19:28 | disposition home or self-care (01) ==
LOC: ED 15:41
PROVIDERS: Nurse Practitioner
DX: N13.2 Hydronephrosis with renal and ureteral calculous obstruction (principal); I10 Essential (primary) hypertension; F41.9 Anxiety disorder, unspecified

== ENCOUNTER 2023-01-20 19:17 | Emergency (ER) | payer SELFPAY ==
[~2023-01-20] VITALS: Ht 170.2 cm; Wt 111.0 kg
[~2023-01-20 19:17] MED LIST changes: +PERCOCET 10/31 COMBO PO; +TAMSULOSIN0.4 MG PO; +TORADOL PO
[2023-01-20 20:01] VITALS: BP 140/93
[2023-01-20 20:08] LABS: BASO% 0.2 % (0-3); EOS% 0.1 % (0-8); HEMOGLOBIN 14.2 g/dl (12.0-16.0); IMMATURE GRANULOCYTES 0.4 % (0.0-5.0); LYMPH% 6.8 % (15-41); MEAN CELL VOLUME 91.3 fL CALC (80.0-100.0); MEAN CORPUSCULAR HGB 30.1 pG CALC (26.0-32.0); MONO% 7.6 % (2-13); NEUT# 24.65 thou/uL (2.00-7.15); NEUT% 84.9 % (42-76); RED BLOOD COUNT 4.71 mill/uL (4.20-5.60); RED CELL DISTRI WIDTH 13.7 % (11.5-15.5)
[2023-01-20 20:16] VITALS: BP 136/79
[2023-01-20 20:21] LABS: ALBUMIN 4.2 g/dL (3.2-5.0); ALKALINE PHOSPHATASE 101 u/l (38-126); ANION GAP 18 (6-22 (CALC)); BUN 13 mg/dL (7-17); BUN/CREATININE RATIO 15 (12-20 (CALC)); CARBON DIOXIDE 18 mmol/l (22-30); CHLORIDE 106 mmol/l (95-108); CREATININE 0.9 mg/dL (0.5-1.0); GFR FOR AFR.AMER. > 60 ML/MIN (>=60 (CALC)); GFR OTHER RACES > 60 ML/MIN (>=60 (CALC)); POTASSIUM 4.5 mmol/l (3.5-5.1); SGOT/AST 31 u/l (14-36); SODIUM 137 mmol/l (137-146); TOTAL PROTEIN 7.7 g/dL (6.3-8.2)
[2023-01-20 20:22] LABS: BILIRUBIN, TOTAL 0.6 mg/dL (0.02-1.3)
[2023-01-20 21:23] LABS: URINE BLOOD DIPSTICK Small (NEGATIVE); URINE GLUCOSE - DIPSTICK Negative (NEGATIVE); URINE KETONE 15 mg/dL (NEGATIVE); URINE LEUK ESTERASE Trace (NEGATIVE); URINE PH 5.5 (4.5-8.0); URINE PROTEIN - DIPSTICK 100 mg/dL (NEG-TRACE); URINE SPECIFIC GRAVITY >=1.030
[2023-01-20 21:25] LABS: URINE COLOR Yellow; URINE NITRITE - DIPSTICK Positive (Negative)
[2023-01-20 21:28] LABS: URINE RBC 0-2 RBC/hpf (0-5)
[2023-01-20 21:29] LABS: URINE BACTERIA MODERATE hpf; URINE WBC 20-50 WBC/hpf (0-5)
[2023-01-21] VITALS (7 sets, daily range): BP systolic 125–151; BP diastolic 78–86
== END 2023-01-21 04:20 | DRG 690 ==
LOC: ED 19:17 → ED-I 20:47 → ED 20:47 → ED-I 21:25 → ED 01-21 04:20
PROVIDERS: Emergency Medicine
DX: N13.6 Pyonephrosis (principal); B96.20 Unspecified Escherichia coli [E. coli] as the cause of diseases classified elsewhere; I10 Essential (primary) hypertension; F41.9 Anxiety disorder, unspecified; Z87.442 Personal history of urinary calculi

== ENCOUNTER 2023-12-18 14:16 | Observation (INO) | payer SELFPAY ==
[~2023-12-18] VITALS: Ht 170.2 cm; Wt 119.8 kg
[~2023-12-18 14:16] MED LIST changes: +DICYCLOMINE HCL20 MG PO; +DOXYCYCLINE100 MG PO; +OXYBUTYNIN CHLOR5 M2 PO; +ZOFRAN4 MG/TAB PO
[2023-12-18] MEDS ORDERED: VANCOMYCIN HCL 1 GM in SODIUM CHLORIDE 0.9% 250 ML IV ONE (14:45)
[2023-12-18] MEDS ORDERED: MORPHINE SULFATE 4 MG/ML VIAL IV ONE (14:50)
[2023-12-18] MEDS ORDERED: KETOROLAC TROMETHAMINE 30 MG/ML SDV IV ONE (14:50)
[2023-12-18] MEDS ORDERED: SODIUM CHLORIDE 0.9% 1,000 ML IV ONE (14:50)
[2023-12-18] MEDS ORDERED: ONDANSETRON HCl 4 MG/2 ML SDV IV ONE (14:50)
[2023-12-18 14:58] LABS: BASO% 0.6 % (0-3); EOS% 1.6 % (0-8); HEMATOCRIT 42.1 % (37.0-47.0); HEMOGLOBIN 13.9 g/dl (12.0-16.0); IMMATURE GRANULOCYTES 0.3 % (0.0-5.0); LYMPH% 28.2 % (15-41); MEAN CELL VOLUME 89.4 fL CALC (80.0-100.0); MEAN CORPUSCULAR HGB 29.5 pG CALC (26.0-32.0); MONO% 7.7 % (2-13); NEUT# 6.51 thou/uL (2.00-7.15); NEUT% 61.6 % (42-76); RED BLOOD COUNT 4.71 mill/uL (4.20-5.60); RED CELL DISTRI WIDTH 13.1 % (11.5-15.5)
[2023-12-18] MEDS ORDERED: TAMSULOSIN HCL 0.4 MG CAP PO SCH (15:00)
[2023-12-18] MEDS ORDERED: SODIUM CHLORIDE 0.9% 1,000 ML IV PRN (15:00)
[2023-12-18 15:09] LABS: ALBUMIN 4.4 g/dL (3.2-5.0); BILIRUBIN, TOTAL 0.4 mg/dL (0.02-1.3); CREATININE 0.7 mg/dL (0.5-1.0); POTASSIUM 3.8 mmol/l (3.5-5.1); TOTAL PROTEIN 8.3 g/dL (6.3-8.2)
[2023-12-18] MEDS ORDERED: OXYBUTYNIN 5 MG/TAB PO SCH (15:30)
[2023-12-18 15:46] LABS: URINE BILIRUBIN - DIPSTICK Negative (NEGATIVE); URINE BLOOD DIPSTICK Moderate (NEGATIVE); URINE GLUCOSE - DIPSTICK Negative (NEGATIVE); URINE KETONE Negative (NEGATIVE); URINE LEUK ESTERASE Trace (NEGATIVE); URINE NITRITE - DIPSTICK Negative (Negative); URINE PROTEIN - DIPSTICK 30 mg/dL (NEG-TRACE); URINE SPECIFIC GRAVITY 1.025; URINE UROBILINOGEN - DIPSTICK 0.2 E.U./dL (0.2)
[2023-12-18 15:51] LABS: URINE COLOR Yellow
[2023-12-18 15:57] LABS: URINE RBC 0-2 RBC/hpf (0-5); URINE SQUAMOUS EPITHELIAL CELL FEW EPI/hpf (0-FEW)
[2023-12-18 15:58] LABS: URINE BACTERIA FEW hpf
[2023-12-18] MEDS ORDERED: HYDROmorphone HCL 2 MG/AMP IV PRN (16:30)
[2023-12-18] MEDS ORDERED: oxyCODONE 5MG/ ACETAMINOPHEN 325MG TAB PO PRN (16:30)
[2023-12-18] MEDS ORDERED: KETOROLAC TROMETHAMINE 15 MG/ML SDV IV SCH (18:00)
[2023-12-18] MEDS ORDERED: PIPERACILLIN Sodium-Tazobactam 3.375 GM in SODIUM CHLORIDE 0.9% 100 ML IV SCH (18:00)
[2023-12-18 19:50] VITALS: BP 174/109
[2023-12-18 19:55] VITALS: BP 174/109
[2023-12-18 20:16] VITALS: BP 174/109
[2023-12-19] VITALS (9 sets, daily range): BP systolic 154–194; BP diastolic 99–128
[2023-12-19] MEDS ORDERED: ONDANSETRON HCl 4 MG/2 ML SDV ONE (10:31)
[2023-12-19] MEDS ORDERED: SODIUM CHLORIDE 0.9% 10 ML SYR ONE (10:32)
[2023-12-19] MEDS ORDERED: FAMOTIDINE 10MG/ML 2ML SDV IV ONE (10:37)
[2023-12-19] MEDS ORDERED: LIDOCAINE HCL 1% (10MG/ML) 100 MG/10 ML MDV ONE (10:41)
[2023-12-19] MEDS ORDERED: LABETALOL HCL 20 MG/ 4 ML CARTRG IV PRN (11:50)
[2023-12-19] MEDS ORDERED: SUGAMMADEX SODIUM 200 MG/2 ML SDV IV ONE (13:52)
[2023-12-19] MEDS ORDERED: DEXAMETHASONE SODIUM PHOSPHATE PF 10 MG/ML SDV IV ONE (13:52)
[2023-12-19] MEDS ORDERED: KETOROLAC TROMETHAMINE 30 MG/ML SDV IV ONE (13:52)
[2023-12-19] MEDS ORDERED: SODIUM CHLORIDE 0.9% 1,000 ML BAG IV ONE (13:52)
[2023-12-19] MEDS ORDERED: LIDOCAINE HCL 2% 2ML SDV IV ONE (13:52)
[2023-12-19] MEDS ORDERED: ROCURONIUM BROMIDE 10 MG/ML 5ML VIAL IV ONE (13:52)
[2023-12-19] MEDS ORDERED: SUCCINYLCHOLINE CHLORIDE 20 MG/ML 10ML VIAL IV ONE (13:52)
[2023-12-19] MEDS ORDERED: ONDANSETRON HCl 4 MG/2 ML SDV IV ONE (13:52)
[2023-12-19] MEDS ORDERED: PROPOFOL 200 MG/20 ML VIAL IV ONE (13:52)
[2023-12-19] MEDS ORDERED: STERILE WATER FOR IRRIGATION 1,000 ML BTL IR ONE (13:59)
[2023-12-19] MEDS ORDERED: SODIUM CHLORIDE 1,000 ML BTL IR ONE (13:59)
[2023-12-19] MEDS ORDERED: PERCOCET 5/325M1 TAB PO (16:14)
== END 2023-12-19 15:47 | disposition left against medical advice (07) | DRG 585 ==
LOC: ED 14:16 → ED-I 14:37 → ED 15:04 → MS2 15:05
PROVIDERS: Nurse Practitioner; ADMIT Internal Medicine; ATTEND Surgery
PROC: 0H9 Skin and Breast, Drainage (ICD-10-PCS; principal; 2023-12-19)
DX: N61.1 Abscess of the breast and nipple (principal); N60.31 Fibrosclerosis of right breast; L73.8 Other specified follicular disorders; I10 Essential (primary) hypertension; F41.9 Anxiety disorder, unspecified; F17.200 Nicotine dependence, unspecified, uncomplicated; Z20.822 Contact with and (suspected) exposure to COVID-19
CPT/HCPCS: G0378; J1100

== ENCOUNTER 2024-04-11 07:37 | Emergency (ER) | payer SELFPAY ==
[~2024-04-11] VITALS: Ht 170.2 cm; Wt 114.8 kg
[2024-04-11] VITALS (17 sets, daily range): BP systolic 141–201; BP diastolic 87–122
[~2024-04-11 07:37] MED LIST changes: +PERCOCET 5/325M1 TAB PO
[2024-04-11] MEDS ORDERED: ASPIRIN 81 MG/TAB PO ONE (07:55)
[2024-04-11 08:54] LABS: BASO% 0.8 % (0-3); EOS% 4.4 % (0-8); HEMATOCRIT 42.1 % (37.0-47.0); HEMOGLOBIN 13.7 g/dl (12.0-16.0); IMMATURE GRANULOCYTES 0.4 % (0.0-5.0); LYMPH% 22.4 % (15-41); MEAN CORPUSCULAR HGB 30.6 pG CALC (26.0-32.0); MEAN CORPUSCULAR HGB CONC 32.5 g/dL CAL (32.0-36.0); MONO% 7.9 % (2-13); NEUT# 7.22 thou/uL (2.00-7.15); NEUT% 64.1 % (42-76); RED BLOOD COUNT 4.48 mill/uL (4.20-5.60); RED CELL DISTRI WIDTH 12.9 % (11.5-15.5)
[2024-04-11] MEDS ORDERED: cloNIDine HCL 0.1 MG/TAB PO ONE (08:55)
[2024-04-11 09:03] LABS: ALBUMIN 4.4 g/dL (3.2-5.0); CREATININE 0.8 mg/dL (0.5-1.0); POTASSIUM 3.6 mmol/l (3.5-5.1); TOTAL PROTEIN 7.9 g/dL (6.3-8.2)
[2024-04-11 09:09] LABS: BILIRUBIN, TOTAL 0.6 mg/dL (0.02-1.3)
[2024-04-11] MEDS ORDERED: BENZONATATE200 MG PO (10:26)
[2024-04-11] MEDS ORDERED: MEDDOSEPAK PO (10:26)
== END 2024-04-11 10:45 | disposition home or self-care (01) | DRG 153 ==
LOC: ED 07:37
PROVIDERS: Family Medicine
DX: J00 Acute nasopharyngitis [common cold] (principal); I10 Essential (primary) hypertension; Z20.822 Contact with and (suspected) exposure to COVID-19

== ENCOUNTER 2024-05-23 18:24 | Emergency (ER) | payer OTHER ==
[~2024-05-23] VITALS: Ht 170.2 cm; Wt 113.4 kg
[~2024-05-23 18:24] MED LIST changes: +BENZONATATE200 MG PO; +MEDDOSEPAK PO
[2024-05-23 18:35] VITALS: BP 208/128
[2024-05-23 18:46] VITALS: BP 194/108
[2024-05-23] MEDS ORDERED: KETOROLAC TROMETHAMINE 30 MG/ML SDV IM ONE (19:00)
[2024-05-23] MEDS ORDERED: ORPHENADRINE CITRATE 30 MG/ML AMP IM ONE (19:00)
[2024-05-23 19:08] LABS: URINE BILIRUBIN - DIPSTICK Negative (NEGATIVE); URINE BLOOD DIPSTICK Trace-lysed (NEGATIVE); URINE CLARITY Cloudy; URINE GLUCOSE - DIPSTICK Negative (NEGATIVE); URINE KETONE Negative (NEGATIVE); URINE LEUK ESTERASE Small (Negative); URINE PROTEIN - DIPSTICK 100 mg/dL (NEG-TRACE); URINE SPECIFIC GRAVITY 1.025; URINE UROBILINOGEN - DIPSTICK 0.2 E.U./dL (0.2)
[2024-05-23 19:10] LABS: URINE COLOR Yellow; URINE NITRITE - DIPSTICK Positive (Negative)
[2024-05-23] MEDS ORDERED: NITROFURANTOIN MONOHYDRATE/MAC (MACROBID) 100 MG/CAP PO ONE (19:35)
[2024-05-23 19:37] VITALS: BP 201/135
[2024-05-23 19:46] VITALS: BP 182/117
[2024-05-23 20:01] VITALS: BP 171/104
[2024-05-23] MEDS ORDERED: METHOCARBAMOL500 MG PO (20:06)
[2024-05-23] MEDS ORDERED: NAPROXEN500 MG PO (20:06)
[2024-05-23 20:17] LABS: URINE WBC 20-50 WBC/hpf (0-5)
[2024-05-23 20:18] LABS: URINE BACTERIA MANY hpf; URINE RBC 0-2 RBC/hpf (0-5); URINE SQUAMOUS EPITHELIAL CELL FEW EPI/hpf (0-FEW)
[2024-05-23] MEDS ORDERED: MACROBID100 M1 PO (20:18)
[2024-05-23 21:09] VITALS: BP 182/117
== END 2024-05-23 21:09 | disposition home or self-care (01) | DRG 552 ==
LOC: ED 18:24
PROVIDERS: Nurse Practitioner
DX: M54.2 Cervicalgia (principal); M54.50 Low back pain, unspecified; N39.0 Urinary tract infection, site not specified; B96.89 Other specified bacterial agents as the cause of diseases classified elsewhere; I10 Essential (primary) hypertension; V49.40XA Driver injured in collision with unspecified motor vehicles in traffic accident, initial encounter
CPT/HCPCS: J2360